=== PATIENT | female | born 1960 | race Two or more races ===

== ENCOUNTER 2016-10-28 17:20 | Inpatient (IN) | payer OTHER ==
[2016-10-28] MEDS ORDERED: SODIUM CHLORIDE 0.9% 1,000 ML ONE ×2 (18:09→19:02)
[2016-10-28 18:32] LABS: ABSOLUTE NEUTROPHIL COUNT 1.9 K/mm3 (1.8-7.7); HEMATOCRIT 28.6 % (37.0-47.0); HEMOGLOBIN 10.3 gm/l (12.0-16.0); IMM NEUT% 0.8 % (0-1); LYMPH # 0.4 (1.0-4.8); LYMPH % 14.5 % (15-45); MEAN CELL VOLUME 100.7 fl (81.0-99.0); MEAN CORPUSCULAR HEMOGLOBIN 36.3 pg (27.0-31.0); MEAN PLATELET VOLUME 9.5 fl (7.4-10.4); MONO # 0.1 (0.0-0.8); MONO % 5.4 % (4-12); NEUT % 79.3 % (43-75); PLATELET COUNT 179 K/mm3 (130-400); RED CELL DISTRIBUTION WIDTH 11.3 % (11.5-14.5)
[2016-10-28 18:48] LABS: ALB/GLOB RATIO 1.3 (>1.0); ALBUMIN 3.9 gm/dL (3.5-5.7); CALCIUM 8.9 mg/dL (8.6-10.3)
--- NOTE | 2016-10-28 18:48 | RAD ---
Name: BISMARK ALVES Exam: Two-view chest Comparison: None Clinical history: Cough and fever Findings: 2 views of the chest are submitted. Heart is nonenlarged. Mediastinum and hilar structures are normal. Patchy bilateral pneumonia is present. There is no pleural effusion or pneumothorax. Mild levoscoliosis is centered at T10 Impression: Mild patchy bilateral pneumonia
[2016-10-28] MEDS ORDERED: SODIUM CHLORIDE 0.9% 250 ML IV ONE (19:02)
[2016-10-28] MEDS ORDERED: AZITHROMYCIN 500 MG VIAL ONE (19:02)
[2016-10-28] MEDS ORDERED: CEFTRIAXONE 1 GRAM DUPLEX 50 ML IV ONE (19:02)
[2016-10-28] MEDS ORDERED: ALBUTEROL/IPRATROPIUM 2.5/0.5 MG 3 ML/EACH DOSE ONE (19:11)
[2016-10-28 20:18] LABS: BAND 38 % (0-10); BASOPHIL 0 % (0-1); EOSINOPHIL 0 % (1-3); LYMPHOCYTE 16 % (15-45); MONOCYTE 4 % (4-12); NEUTROPHILS 42 % (43-75); TOTAL CELLS COUNTED 100
[2016-10-28 20:19] LABS: PLATELET ESTIMATE NORMAL (NORMAL)
[2016-10-28] MEDS ORDERED: MAGNESIUM HYDROXIDE 30 ML UDCUP PO PRN (20:30)
[2016-10-28] MEDS ORDERED: BISACODYL 5 MG TABLET.EC PO PRN (20:30)
[2016-10-28] MEDS ORDERED: BISACODYL 10 MG SUP PR PRN (20:30)
[2016-10-28] MEDS ORDERED: SODIUM CHLORIDE 0.9% 100 ML IV PRN (20:30)
[2016-10-28] MEDS ORDERED: BLISTEX LIPSTICK 1 EACH TP PRN (20:30)
[2016-10-28] MEDS ORDERED: CALCIUM CARBONATE 500 MG TAB.CHEW PO PRN (20:30)
[2016-10-28] MEDS ORDERED: MENTHOL/CETYLPYRD 1 EACH LOZENGE PO PRN (20:30)
[2016-10-28] MEDS ORDERED: LORAZEPAM 0.5 MG TABLET PO PRN (20:35)
[2016-10-28] MEDS ORDERED: ALBUTEROL/IPRATROPIUM 2.5/0.5 MG 3 ML/EACH DOSE NEB PRN (20:35)
[2016-10-28] MEDS ORDERED: AZITHROMYCIN 250 MG in SODIUM CHLORIDE 0.9% 250 ML IV ONE (20:35)
[2016-10-28 20:59] VITALS: BMI 24.0
[2016-10-28] MEDS ORDERED: MULTIVITAMINS 10 ML, FOLIC ACID 2 MG, MAGNESIUM SULFATE 1 G/2 ML 2 G, THIAMINE HCL 100 ... IV ONE ×5 (21:20)
[2016-10-28] MEDS: DOCUSATE SODIUM 100 MG CAPSULE PO SCH (21:37)
[2016-10-28] MEDS: ENOXAPARIN SODIUM 40 MG/0.4 ML SYRINGE SUB-Q SCH (23:14)
[2016-10-28] MEDS: D5NS with 20mEq KCL 1,000 ML IV SCH (23:15)
[2016-10-29] MEDS: ACETAMINOPHEN 325 MG TABLET PO PRN ×2 (01:21→17:06)
--- NOTE | 2016-10-29 02:40 | PDOC36 ---
Provider Note Subject: Follow up on sepsis Note: Patient admitted for pneumonia, has had low BP, concerning for severe sepsis, with low BP (normally is hypertensive), but generally preserved mentation, renal function with good output and normal lactate. Fluids given with improvement in SBP to mid/upper 90s, but now with BP 81/49, despite well over 30 ml/kg since admit. Lungs currently clear, heart RRR (pulse 84), Pulses good at wrists bilat. Generally pale, but cap refill appears <3 sec. Some mild generalized puffiness suggested. So with severe sepsis (infection + low WBC/bandemia + RR + low SBP) and persisting low SBP after fluids, will consider this septic shock. Plan move to ICU, and initiate pressors. Discussed with pt and daughter. Vital Signs Last 12 Hours Temp Pulse Resp BP Pulse Ox 10/29/16 02:07 99.7 F 84 16 81/49 93 10/29/16 01:07 100.2 F 91 16 93/60 93 10/29/16 00:01 100.2 F 96 23 96/60 92 10/28/16 23:00 95 101/61 94 10/28/16 22:00 92 96/62 92 10/28/16 21:04 91 10/28/16 21:00 98.8 F 98 24 91/55 87 10/28/16 19:55 99.1 F 84 22 76/48 91 239 am 10/29/16
[2016-10-29] MEDS ORDERED: NOREPINEPHRINE BITARTRATE 4 MG in D5W 246 ML IV PRN (02:46)
[2016-10-29] MEDS ORDERED: NOREPINEPHRINE BITARTRATE 1 MG/ML IV ONE (03:22)
[2016-10-29] MEDS ORDERED: D5W 250 ML IV ONE (03:23)
[2016-10-29] MEDS ORDERED: PUMP TUBING ONE (03:37)
--- NOTE | 2016-10-29 05:32 | HP ---
BISMARK ALVES [id number] DATE OF ADMISSION: October 28, 2016 CHIEF COMPLAINT: Dyspnea and cough. HISTORY OF PRESENT ILLNESS: The patient is a 56-year-old female without prior pulmonary history except for a history of smoking who reports quitting about two weeks ago. She reports that she has had about a one week history of some fever and some productive ramirez/yellow sputum of a frothy nature. She had been seen at the clinic and noted to have a negative influenza test but was hypoxic so referred to the emergency department. She has had temperature to 102 degrees. Her sputum has been ramirez and frothy. She has had some chills, and she notes having loose stools this morning three or four times. In the emergency department bilaterally patchy infiltrate was noted with saturations to 90% was referred to hospitalist service. PAST MEDICAL HISTORY: Remarkable for: 1. Hypertension. 2. History of smoking. 3. She denies having any particular respiratory symptoms that made her quit smoking prior to getting sicker. PAST SURGICAL HISTORY: Negative. ALLERGIES: None. MEDICATIONS: 1. Zestoretic 20/12.5 orally twice daily. 2. Acetaminophen as needed. SOCIAL HISTORY: She is 31 years. 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 She has two kids. She smoked until earlier this month. She has two or three glasses of wine most nights. She denies any shaking or history of withdrawal. She has a dog. Hobbies include cooking. She has had no recent travel in the last several months. No particular muslim affiliation. FAMILY HISTORY: Father at 62 of heart disease. Mom at 83 and has some dementia. REVIEW OF SYSTEMS: Eyes, ears, nose and throat are okay. Neck is okay. Heart is okay. She has had this cough producing sputum and been short of breath. Stomach, she has had some loose stools as mentioned before but no urinary complaints. No breast complaints. No genitourinary complaints. She is menopausal. She is not on hormone replacement. No skin complaints. Arms have been okay. Legs have been okay. No central nervous system complaints. PHYSICAL EXAM: GENERAL: A pale female coughing some. She is able to sit up and even walk some. VITAL SIGNS: Temperature 99.1, pulse 84, blood pressure 76/48, although blood pressure had been 94/50 in the emergency department prior to arrival here. Saturation 91% on 2 L. Respirations 24. She weighs 118 pounds according to her . HEAD: Head is normocephalic, atraumatic. EYES: Unremarkable. EARS: Are normal. NOSE: Is unremarkable. MOUTH: Normal, dentition good. NECK: Is supple, no jugular venous distension, no masses. LUNGS: Cough with some crackles and slightly coarse breath sounds in the right posterior base. Breath sounds slightly coarse throughout. She is not particularly wheezy. HEART: Regular rate and rhythm without murmur. ABDOMEN: Bowel sounds are normal. No rebound. No regarding. Abdomen is nontender, nondistended and soft. No costovertebral angle tenderness to percussion. BREAST: Exam is deferred. GENITOURINARY: Exam is deferred. EXTREMITIES: Legs, no clubbing, cyanosis or edema. Knees, ankle and feet are unremarkable. Pulses are palpable at the wrists bilaterally and capillary refill appears to be fairly good. SKIN: Normal, no rash. NEUROLOGIC: Grossly normal. She is uncertain of the date but can answer the month and year and answers other questions well. LABORATORY: White count 2.4, 38% bands, hemoglobin 10.3, platelets 179, MCV is 100.7, lactate 1.1. Sodium 121, potassium 3.8, chloride 89, bicarbonate 23, BUN 8, creatinine 0.5, glucose 112, calcium is 8.9, AST 25, ALT 13, alkaline phosphatase 32, albumin 3.9, globulin 3.0. Influenza is negative. Blood cultures are pending. IMAGING: Chest x-ray, mild patchy bilateral pneumonia. ASSESSMENT AND PLAN: 1. Community acquired pneumonia presumed bacterial, organism not identified yet. Plan to continue on the Rocephin and azithromycin started in the emergency department. 2. Severe sepsis with low platelets, low blood pressure. We will continue the IV fluid bolus; 30 mL per kilogram would be 1.6 liters and she has had two liters ordered so far from the emergency department. Although blood pressure is low, she appears to be tolerating this fairly well so far, but if this continues, would consider for transfer to IMCU or ICU with pressor support. 3. History of hypertension. Anticipate holding medicines for now in the setting of low blood pressure. 4. Regular alcohol use, reported two to three drinks of wine per day. I will be checking on her last dose. Consider lorazepam as needed and anticipate use of a banana bag and monitor for any withdrawal although patient denies any history of such. 5. Macrocytic anemia possibly attributed to alcohol. Anticipate multivitamin. 6. History of smoking, now quit. Consider use of a nicotine replacement if desired. 7. Hyponatremia. Anticipate receiving normal saline initially. Recheck sodium in the morning and if aggressive hyponatremia continues, we will consider for further treatment. At this time she is not particularly symptomatic. cc: Hector Teran M.D.
[2016-10-29 07:12] LABS: ALB/GLOB RATIO 1.2 (>1.0); ALBUMIN 3.2 gm/dL (3.5-5.7); CALCIUM 7.9 mg/dL (8.6-10.3)
--- NOTE | 2016-10-29 08:02 | PDOC36 ---
Provider Note Subject: Follow up on ICU transfer. Note: RN reports pt feeling better. Not dizzy. Still with good urine output, also some continuing loose stools (which preceded hospitalization). Levophed at 4, Sats doing well with O2 at 1 L. Pt reports appetite better. No new c/o. Vital Signs Last 12 Hours Temp Pulse Resp BP Pulse Ox 10/29/16 07:00 100.3 F 84 23 134/86 94 10/29/16 06:00 86 22 126/82 95 10/29/16 05:15 81 107/70 10/29/16 05:00 84 24 107/70 92 10/29/16 04:50 86 23 93/46 10/29/16 04:30 78 24 99/67 95 10/29/16 04:10 81 25 102/66 10/29/16 04:00 86 97/62 10/29/16 03:53 94 10/29/16 03:50 77 25 97/62 10/29/16 03:30 25 10/29/16 03:15 97.7 F 82 25 88/62 94 10/29/16 03:03 81 16 84/49 94 10/29/16 02:07 99.7 F 84 16 81/49 93 10/29/16 01:07 100.2 F 91 16 93/60 93 10/29/16 00:01 100.2 F 96 23 96/60 92 10/28/16 23:00 95 101/61 94 10/28/16 22:00 92 96/62 92 10/28/16 21:04 91 10/28/16 21:00 98.8 F 98 24 91/55 87 10/28/16 19:55 99.1 F 84 22 76/48 91 Intake & Output 10/28/16 10/28/16 10/29/16 15:59 23:59 07:59 Intake Total 5390 Output Total 3800 Balance 1590 Weight 54.1 kg 53.2 kg Intake: PO Intake 2100 IV Fluids 3290 Output: Void 3050 Mixed Urine/Stool Output 750 Other: Number of Voids 2 Unmeasured Stool Amount Small Number of Stools 4 Lungs - breath sounds improved, still with some wheezes bilat. Heart RRR Abd soft, BS+ active. Color improved, cap refill appears improved. 10/29/16 05:04 Sputum Culture - Preliminary Sputum Laboratory Results - last 24 hr 10/28/16 10/28/16 10/29/16 18:08 18:15 06:30 WBC 2.4 L RBC 2.84 L Hgb 10.3 L Hct 28.6 L MCV 100.7 H MCH 36.3 H MCHC 36.0 RDW 11.3 L Plt Count 179 Neut % (Auto) 79.3 H Lymph % (Auto) 14.5 L Mclean % (Auto) 5.4 Baso % (Auto) 0.0 L Absolute Neuts (auto) 1.9 Neutrophils % (Manual) 42 L Band Neutrophils % 38 H Lymphocytes % (Manual) 16 Monocytes % (Manual) 4 Eosinophils % 0.0 L Eosinophils % (Manual) 0 L Basophils % 0 Platelet Estimate Normal Macrocytosis 1+ VBG Lactate 1.1 0.8 Sodium 121 L 132 L Potassium 3.8 4.2 Chloride 89 L 103 Carbon Dioxide 23 24 Anion Gap 13 9 BUN 8 5 L Creatinine 0.5 L 0.5 L Estimated GFR 129 H 129 H BUN/Creatinine Ratio 16 10 Glucose 112 H 148 H Calcium 8.9 7.9 L Total Bilirubin 0.5 0.3 AST 25 27 ALT 13 11 Alkaline Phosphatase 32 L 30 L Total Protein 6.9 5.9 L Albumin 3.9 3.2 L Globulin 3.0 2.7 Albumin/Globulin Ratio 1.3 1.2 % Immature Granulocyt 0.8 Influenza A (Rapid) Negative Influenza B (Rapid) Negative A/P 1 CAP, presumed bacterial, type not known With severe sepsis/septic shock; now improved Continue on Rocephin/Zithromax Continue on Levophed, try to wean later today; 2. Hypoxia with resp distress, on O2 at 1L, improved. 3. Hypotension due to septic shock - on levophed Urine output and overall perfusion has been good; lactate good. 4. Hx smoking , now quit. 5. Hx HTN - holding medicine. 6. Hyponatremia - improved 121->132; faster correction than desired, but fluids needed for tx of sepsis 7. (mild) leukopenia - suspect due to sepsis, will be rechecking in am. 8. Diarrhea - uncertain cause - will be monitoring.
[2016-10-29 08:19] LABS: ABSOLUTE NEUTROPHIL COUNT 2.8 K/mm3 (1.8-7.7); BASO % 0.3 % (0.2-1.0); HEMATOCRIT 26.8 % (37.0-47.0); HEMOGLOBIN 9.4 gm/l (12.0-16.0); IMM NEUT # 0.1 K/mm3 (0-0.2); IMM NEUT% 2.6 % (0-1); LYMPH # 0.5 (1.0-4.8); LYMPH % 14.5 % (15-45); MEAN CELL VOLUME 103.5 fl (81.0-99.0); MEAN CORPUSCULAR HEMOGLOBIN 36.3 pg (27.0-31.0); MEAN CORPUSCULAR HGB CONC 35.1 g/dl (33.0-37.0); MEAN PLATELET VOLUME 10.6 fl (7.4-10.4); MONO # 0.1 (0.0-0.8); MONO % 2.3 % (4-12); NEUT % 80.3 % (43-75); PLATELET COUNT 180 K/mm3 (130-400); RED CELL DISTRIBUTION WIDTH 11.6 % (11.5-14.5)
[2016-10-29 08:53] LABS: BAND 50 % (0-10); BASOPHIL 2 % (0-1); EOSINOPHIL 0 % (1-3); LYMPHOCYTE 13 % (15-45); MONOCYTE 1 % (4-12); NEUTROPHILS 33 % (43-75); PLATELET ESTIMATE NORMAL (NORMAL); TOTAL CELLS COUNTED 100
[2016-10-29] MEDS: DOCUSATE SODIUM 100 MG CAPSULE PO SCH (08:57)
[2016-10-29] MEDS: D5NS with 20mEq KCL 1,000 ML IV SCH ×2 (09:09→21:04)
[2016-10-29 14:44] LABS: STOOL FOR OCCULT BLOOD NEGATIVE (NEGATIVE)
[2016-10-29 15:13] LABS: C DIFF TOXIN A/B NEGATIVE (NEGATIVE)
[2016-10-29] MEDS: CEFTRIAXONE 1 GRAM DUPLEX 50 ML IV SCH (17:55)
[2016-10-29] MEDS: AZITHROMYCIN 500 MG in SODIUM CHLORIDE 0.9% 250 ML IV SCH (18:53)
[2016-10-29] MEDS: ENOXAPARIN SODIUM 40 MG/0.4 ML SYRINGE SUB-Q SCH (20:53)
[2016-10-30] MEDS: DOCUSATE SODIUM 100 MG CAPSULE PO SCH ×3 (02:00→22:10)
[2016-10-30] MEDS: ENOXAPARIN SODIUM 40 MG/0.4 ML SYRINGE SUB-Q SCH ×2 (02:00→22:11)
[2016-10-30 05:50] LABS: ABSOLUTE NEUTROPHIL COUNT 4.8 K/mm3 (1.8-7.7); BASO % 0.3 % (0.2-1.0); EOS % 0.3 % (0.9-2.9); HEMATOCRIT 24.3 % (37.0-47.0); HEMOGLOBIN 8.4 gm/l (12.0-16.0); IMM NEUT # 0.1 K/mm3 (0-0.2); IMM NEUT% 0.8 % (0-1); LYMPH # 0.8 (1.0-4.8); LYMPH % 13.2 % (15-45); MEAN CELL VOLUME 106.1 fl (81.0-99.0); MEAN CORPUSCULAR HEMOGLOBIN 36.7 pg (27.0-31.0); MEAN CORPUSCULAR HGB CONC 34.6 g/dl (33.0-37.0); MEAN PLATELET VOLUME 10.1 fl (7.4-10.4); MONO # 0.2 (0.0-0.8); MONO % 3.4 % (4-12); PLATELET COUNT 185 K/mm3 (130-400); RED CELL DISTRIBUTION WIDTH 11.9 % (11.5-14.5)
[2016-10-30 06:07] LABS: ALB/GLOB RATIO 1.1 (>1.0); ALBUMIN 2.8 gm/dL (3.5-5.7); CALCIUM 7.7 mg/dL (8.6-10.3)
[2016-10-30] MEDS ORDERED: BENZONATATE 100 MG CAPSULE PO PRN (06:50)
[2016-10-30] MEDS: D5NS with 20mEq KCL 1,000 ML IV SCH (07:11)
[2016-10-30 07:48] LABS: NEUTROPHILS 82 % (43-75); TOTAL CELLS COUNTED 100
[2016-10-30 07:49] LABS: ANISOCYTOSIS 1+; BAND 4 % (0-10); BASOPHIL 1 % (0-1); EOSINOPHIL 1 % (1-3); LYMPHOCYTE 11 % (15-45); MONOCYTE 1 % (4-12); PLATELET ESTIMATE NORMAL (NORMAL)
--- NOTE | 2016-10-30 10:03 | PDOC43 ---
- Subjective Chief Complaint: pneumonia Pt has been off pressure since yest am. BP has been doing well, tolerating activity well. Eating ok. Still on O2 now, but didn't need it earlier when awake. Still with some looser stools. Testing was negative so far. No withdrawal sx. Pt reports feeling ok, breathing ok, still coughing. Eating ok. Still with a loose stool today. No new c/o. Visiting with daughter and . - Objective Vital Signs Temperature 100.4 F 10/30/16 07:12 Pulse Rate 87 10/30/16 08:37 Respiratory Rate 26 10/30/16 08:42 Blood Pressure 127/71 10/30/16 08:37 O2 Saturation by Pulse Oximetry 95 10/30/16 08:41 Oxygen Delivery Method Room Air Oxygen Flow Rate 0 Vital Signs Last 12 Hours Temp Pulse Resp BP Pulse Ox 10/30/16 08:42 26 10/30/16 08:41 95 10/30/16 08:37 87 26 127/71 92 10/30/16 07:12 100.4 F 82 29 117/70 95 10/30/16 06:00 85 24 113/63 95 10/30/16 04:00 85 25 110/74 93 10/30/16 02:00 98.9 F 81 24 107/67 94 10/30/16 00:00 71 24 97/52 99 10/29/16 22:00 71 22 86/57 97 Intake and Output 10/28/16 10/29/16 10/30/16 23:59 23:59 23:59 Intake Total 6390 2855 Output Total 6100 750 Balance 290 2105 Intake & Output 10/29/16 10/30/16 10/30/16 23:59 07:59 15:59 Intake Total 2855 Output Total 1300 550 200 Balance -1300 2305 -200 Weight 54.5 kg Intake: PO Intake 500 IV Fluids 2355 Output: Void 1300 400 Mixed Urine/Stool Output 150 200 General: Alert, Cooperative, Other (reading newspaper, appears to be feeling much better.), No Acute Distress Lungs: Other (coarse breath sounds, crackles R posterior base.) Cardiovascular: Regular Rate and Rhythm Abdomen: Soft, Normal Bowel Sounds, Non-Distended Extremities: No Edema Skin: Normal Color Neurological: Normal Speech Psych/Mental Status: Normal Affect, Other (looks to be feeling much better.) Laboratory 02/23/17 05:15 10/30/16 05:15 10/30/16 05:15 RBC 2.29 L MCV 106.1 H MCH 36.7 H BUN 4 L Estimated GFR 166 H Calcium 7.7 L Alkaline Phosphatase 32 L Total Protein 5.4 L Albumin 2.8 L Current Medications: Current meds reviewed in EMR. 10/29/16 05:04 Sputum Culture - Preliminary Sputum Laboratory Results - last 24 hr 10/29/16 10/30/16 12:33 05:15 WBC 5.9 RBC 2.29 L Hgb 8.4 L Hct 24.3 L MCV 106.1 H MCH 36.7 H MCHC 34.6 RDW 11.9 Plt Count 185 Neut % (Auto) 82.0 H Lymph % (Auto) 13.2 L Mitchell % (Auto) 3.4 L Baso % (Auto) 0.3 Absolute Neuts (auto) 4.8 Neutrophils % (Manual) 82 H Band Neutrophils % 4 Lymphocytes % (Manual) 11 L Monocytes % (Manual) 1 L Eosinophils % 0.3 L Eosinophils % (Manual) 1 Basophils % 1 Platelet Estimate Normal Anisocytosis 1+ Sodium 134 L Potassium 3.8 Chloride 107 Carbon Dioxide 21 Anion Gap 10 BUN 4 L Creatinine 0.4 L Estimated GFR 166 H BUN/Creatinine Ratio 10 Glucose 111 H Calcium 7.7 L Total Bilirubin 0.3 AST 17 ALT 9 Alkaline Phosphatase 32 L Total Protein 5.4 L Albumin 2.8 L Globulin 2.6 Albumin/Globulin Ratio 1.1 Stool Occult Blood Negative % Immature Granulocyt 0.8 C. difficile Toxin A&B Negative C. difficile Antigen Negative - Problems: Assessment/Plan (1) Community acquired bacterial pneumonia Status: AcuteAssessment/Plan: On Rocephin, azithromycin. Sputum - oral doron Influenza - neg blood cx - neg so far Severe sepsis/septic shock now resolved. BP doing well, off pressors. Taking PO well. Plan recheck CXR. (2) Hyponatremia Status: ResolvedAssessment/Plan: Now corrected. Holding BP med currently. (3) Hypoxia Status: AcuteAssessment/Plan: Saturations improved. Plan monitor, anticipate to Med/surg today. (4) Severe sepsis Status: ResolvedAssessment/Plan: Now resolved. Off pressors. Good urine output, although holding BP med currently. (5) Hypertension Qualifiers: Hypertension type: essential hypertension Qualifier Code: (I10) Essential (primary) hypertension Status: ChronicAssessment/Plan: Holding med for now VTE Prophylaxis: enoxaparin Disposition: Plan med surg today, and anticipate to home tomorrow if continues to do well.
--- NOTE | 2016-10-30 10:43 | RAD ---
10/30/2016 10:38 AM CHEST-AP BEDSIDE History: Follow-up pneumonia Comparison: 10/28/2016 Findings: Single AP view of the chest is obtained. The lungs demonstrate worsening of the patient's patchy multifocal airspace disease throughout the bilateral lung. There may be tiny bilateral effusions. The cardiomediastinal silhouette is unremarkable.. The osseous structures are intact.. EKG leads overlie the chest. IMPRESSION: Radiographic worsening of the patient's bilateral pneumonia with possible tiny effusions.
[2016-10-30] MEDS: MULTIVITAMINS 1 TAB TABLET PO SCH (10:48)
[2016-10-30] MEDS: ACETAMINOPHEN 325 MG TABLET PO PRN (12:29)
[2016-10-30] MEDS ORDERED: PUMP TUBING ONE ×2 (17:58→19:44)
[2016-10-30] MEDS: CEFTRIAXONE 1 GRAM DUPLEX 50 ML IV SCH (18:06)
[2016-10-30] MEDS: AZITHROMYCIN 500 MG in SODIUM CHLORIDE 0.9% 250 ML IV SCH (20:03)
[2016-10-31 06:22] LABS: ABSOLUTE NEUTROPHIL COUNT 6.1 K/mm3 (1.8-7.7); BASO % 0.1 % (0.2-1.0); EOS % 0.4 % (0.9-2.9); HEMOGLOBIN 9.2 gm/l (12.0-16.0); IMM NEUT% 0.3 % (0-1); LYMPH # 0.8 (1.0-4.8); LYMPH % 11.2 % (15-45); MEAN CELL VOLUME 103.6 fl (81.0-99.0); MEAN CORPUSCULAR HEMOGLOBIN 36.7 pg (27.0-31.0); MEAN CORPUSCULAR HGB CONC 35.4 g/dl (33.0-37.0); MEAN PLATELET VOLUME 10.1 fl (7.4-10.4); MONO # 0.5 (0.0-0.8); MONO % 6.2 % (4-12); NEUT % 81.8 % (43-75); PLATELET COUNT 257 K/mm3 (130-400); RED CELL DISTRIBUTION WIDTH 11.8 % (11.5-14.5)
[2016-10-31 06:43] LABS: CALCIUM 8.4 mg/dL (8.6-10.3)
[2016-10-31 07:41] VITALS: BP 114/72
[2016-10-31] MEDS: DOCUSATE SODIUM 100 MG CAPSULE PO SCH (09:13)
[2016-10-31] MEDS: MULTIVITAMINS 1 TAB TABLET PO SCH (09:13)
--- NOTE | 2016-10-31 11:50 | PDOC43 ---
- Subjective Chief Complaint: pneumonia Patient reports feeling better. Eating ok. Breathing ok. Still coughing. Ambulating ok. Would like to go home. No new c/o. - Objective Vital Signs Temperature 98.5 F 10/31/16 07:39 Pulse Rate 73 10/31/16 09:18 Respiratory Rate 18 10/31/16 07:39 Blood Pressure 114/72 10/31/16 07:39 O2 Saturation by Pulse Oximetry 95 10/31/16 09:18 Oxygen Delivery Method Room Air Oxygen Flow Rate 0 Vital Signs Last 12 Hours Temp Pulse Resp BP Pulse Ox 10/31/16 09:18 73 95 10/31/16 07:39 98.5 F 73 18 114/72 97 10/31/16 07:30 18 10/31/16 05:32 20 10/31/16 02:00 99.2 F 84 20 120/74 95 Intake and Output 10/29/16 10/30/16 10/31/16 23:59 23:59 23:59 Intake Total 6390 3948 650 Output Total 6100 1175 1475 Balance 290 2773 -825 General: Alert, Cooperative, Other (coughing some.) Lungs: Other (sl coarse breath sounds bilat, sl wheeze noted) Cardiovascular: Regular Rate and Rhythm Abdomen: Soft, Normal Bowel Sounds, Non-Distended, No Tenderness Extremities: No Edema Neurological: Normal Speech Psych/Mental Status: Normal Mood Laboratory 10/31/16 05:30 10/31/16 05:30 10/31/16 05:30 RBC 2.51 L MCV 103.6 H MCH 36.7 H BUN 4 L Estimated GFR 129 H Calcium 8.4 L Current Medications: Current meds reviewed in EMR. Active Medications Acetaminophen (Tylenol) 650 mg PO Q6H PRN PRN Reason: Pain or Temperature > 100.5 F Last Admin: 10/30/16 12:29 Dose: 650 mg Albuterol/Ipratropium (Duoneb) 3 ml NEB Q6H PRN PRN Reason: Wheezing Benzocaine/Menthol (Cepacol) 1 each PO PRN PRN PRN Reason: Sore Throat Benzonatate (Tessalon Perles) 200 mg PO TID PRN PRN Reason: Cough Bisacodyl (Dulcolax) 10 mg W[place] DAILY PRN PRN Reason: Constipation Bisacodyl (Dulcolax) 5 mg PO DAILY PRN PRN Reason: Constipation Calcium Carbonate/Glycine (Tums) 500 mg PO Q4H PRN PRN Reason: Indigestion Docusate Sodium (Colace) 100 mg PO BID [facility] Last Admin: 10/31/16 09:13 Dose: 100 mg Enoxaparin Sodium (Lovenox) 40 mg SUB-Q Q24H [facility] Last Admin: 10/30/16 22:11 Dose: 40 mg Ceftriaxone Sodium/Dextrose (Rocephin 1 Gram Premix) 50 mls @ 100 mls/hr IV Q24H [facility] Last Admin: 10/30/16 18:06 Dose: 100 mls/hr Sodium Chloride (Sodium Chloride 0.9%) 100 mls @ 25 mls/hr IV PRN PRN PRN Reason: Flush Last Admin: 10/30/16 18:06 Dose: 25 mls/hr Lorazepam (Ativan) 0.5 mg PO Q4H PRN PRN Reason: Anxiety Magnesium Hydroxide (Milk Of Magnesia) 30 ml PO DAILY PRN PRN Reason: Constipation Multivitamins (One-A-Day) 1 tab PO DAILY [facility] Last Admin: 10/31/16 09:13 Dose: 1 tab Petrolatum/Paraffin/Mineral Oil (Blistex) 1 each TP PRN PRN PRN Reason: Dry and/or chapped lips Sodium Chloride (Normal Saline 10ml Flush) 10 - 50 ml IV PRN PRN PRN Reason: IV Flush Sodium Chloride (Normal Saline 10ml Flush) 10 ml IV Q8HR [facility] Last Admin: 10/31/16 09:13 Dose: 10 ml - Problems: Assessment/Plan (1) Community acquired bacterial pneumonia Status: AcuteAssessment/Plan: On Rocephin, azithromycin. Sputum - oral doron Influenza - neg blood cx - neg so far Severe sepsis/septic shock now resolved. BP doing well, off pressors. Taking PO well. (2) Hypoxia Status: ResolvedAssessment/Plan: Saturations improved, now on RA. (3) Hypertension Qualifiers: Hypertension type: essential hypertension Qualifier Code: (I10) Essential (primary) hypertension Status: ChronicAssessment/Plan: Holding med for now, anticipate resume when going home, sooner if higher BP VTE Prophylaxis: enoxaparin Disposition: anticipate return to home.
[2016-10-31] MEDS ORDERED: PUMP TUBING ONE (12:57)
[2016-10-31] MEDS ORDERED: CEFTRIAXONE 1 GRAM DUPLEX 50 ML IV SCH (13:00)
--- NOTE | 2016-11-03 12:54 | DS ---
BISMARK ALVES [id number] DATE OF ADMISSION: 10/28/2016 DATE OF DISCHARGE: 10/31/2016 DISCHARGE DIAGNOSES: 1. Community-acquired pneumonia, presumed bacterial, but no organism identified. 2. Severe sepsis, with a low white blood cell count and hypotension, resolved. 3. History of hypertension. 4. History of smoking, but recently quit. 5. Reported regular alcohol use at two or three drinks of wine per day. 6. Macrocytic anemia. 7. Hyponatremia, with a sodium of 121 at admission and improvement to 134 by time of discharge. REASON FOR ADMISSION: The patient is a 56-year-old female without prior pulmonary disease, except for a history of smoking, who quit about two weeks prior to admission. She then had about a one week history of some fever and some productive ramirez-yellow sputum of a frothy nature. She went to the clinic and had a negative influenza test, but because of hypoxia was referred to the emergency department. She had noted a temperature to 102 degrees, along with some chills and loose stools. In the ER she had a patchy infiltrate bilaterally and a saturation of 90%, so was referred to the Hospitalist Service. Her admission labs showed a white blood cell count of 2.4, hemoglobin 10.3, MCV of 100.7 and platelets of 179. Her lactate was 1.1. Chemistry profile showed a sodium of 121, potassium 3.8, chloride 89, bicarbonate 23, BUN of 8, creatinine 0.5 and glucose 112. LFTs are normal. Alkaline phosphatase is slightly low at 32. Stool occult blood was negative. Influenza and C-diff testing were negative. HOSPITAL COURSE: She was referred to the Hospitalist Service and started on azithromycin and Rocephin. She was given an IV fluid bolus, 30 mL per kilogram, and had some persisting hypotension, with a blood pressure of 81/49 despite fluid administration. She was transferred to ICU and started on Levophed. The patient tolerated this well and had good response, with improvement in appearance of well-being, and urine output was good. Her pressors were stopped on 10/30/2016. By 10/31/2016, she had blood pressure with systolics between 114-120, was tolerating PO intake well, saturations improved and she was doing well on room air. She was then discharged to home on 10/31/2016. DISCHARGE MEDICATIONS: Her discharge meds were to be: 1. Acetaminophen 650 mg by mouth every four hours as needed. 2. Tessalon 200 mg by mouth three times a day as needed. 3. Ceftin 500 mg by mouth twice a day. 4. Mucinex 600 mg by mouth twice a day. 5. She is on Lisinopril/HCTZ 26/08.5 one by mouth twice a day, although she is advised to hold this until she checks with her primary care doctor. 6. Multivitamin one by mouth daily. DISCHARGE FOLLOW-UP: She was to follow-up with Dr. Hector Teran on 11/07/2016 at 10:30 A.M. CONDITION ON DISCHARGE: Much improved. cc: Dr. Hector Teran
== END 2016-10-31 13:49 | disposition home or self-care (01) | DRG 193 ==
LOC: ED 17:20 → MS 19:07 → ICU 10-29 03:35 → MS 10-30 18:30
PROVIDERS: ADMIT Family Medicine; ATTEND Family Medicine
DX: J18.9 Pneumonia, unspecified organism (principal); R65.20 Severe sepsis without septic shock; E87.1 Hypo-osmolality and hyponatremia; R09.02 Hypoxemia; D72.819 Decreased white blood cell count, unspecified; F17.210 Nicotine dependence, cigarettes, uncomplicated; R00.0 Tachycardia, unspecified; I10 Essential (primary) hypertension; F10.10 Alcohol abuse, uncomplicated; D53.9 Nutritional anemia, unspecified